=== PATIENT | female | born 1975 | race Caucasian/White ===

== ENCOUNTER → 2018-03-05 | Outpatient (CLI) | payer MEDICAID ==
--- NOTE | 2018-03-06 11:20 | CPEEG ---
FOUR-HOUR VIDEO EEG DATE OF STUDY: 03/05/2018 INTERPRETATION: This 4-hour video EEG recording is normal. There were no potentially epileptogenic abnormalities present during the awake or sleep recordings. The patient did not have any clinical ev ents during the video EEG monitoring session. REPORT: This 4-hour video EEG contains 9-10 Hz alpha activity to the posterior head regions. The ba ckground activity was normal and symmetric during maximal alertness. There was no abnormal activatio n at rest, during photic stimulation or hyperventilation. The patient became drowsy and fell into francois stained sleep during the study. There was no abnormal activation during drowsiness, sleep, or during times of arousal. The patient did not have any clinical events during the video EEG monitoring [facility] ion. /[id number]/MODL
== END ==
LOC: FCPNEURO 10:05
PROVIDERS: ATTEND Psychiatry & Neurology Neurology
DX: G40.909 Epilepsy, unspecified, not intractable, without status epilepticus (principal)

== ENCOUNTER → 2018-04-11 | Outpatient (CLI) | payer MEDICAID | LOC: CIMAGING 09:50 | PROVIDERS: ATTEND Psychiatry & Neurology Neurology | DX: G40.909 Epilepsy, unspecified, not intractable, without status epilepticus (principal) | CPT/HCPCS: 70450-PO ==